=== PATIENT | female | born 1990 | race Caucasian/White ===

== ENCOUNTER 2018-06-05 20:19 | Inpatient (IN) ==
[2018-06-05] MEDS ORDERED: Sod Chloride 0.9% Inj 1,000 ML IV.SIG ONE (21:47)
--- NOTE | 2018-06-05 22:06 | ED ---
HPI General Chief Complaint: Behavioral Therapist Problem Stated Complaint: medical record coder complaint Time Seen by Provider: 06/05/18 21:35 Source: patient and family Mode of arrival: ambulatory Limitations: no limitations History of Present Illness HPI narrative: The patient is 20 years old and arrives with a problem with the gastric tube. The mother was unable to advance tube feeds today. Last oral intake was about 10 hours ago. The gastric button was placed about 8 years ago. Until now there has been no problem with it. The patient has put on 50 pounds since the placement of the gastric button. Related Data Home Medications Medication Instructions Recorded Confirmed clonazepam 1 mg FEEDING TUBE DAILY 06/05/18 06/05/18 glycopyrrolate 1 mg PO TID 06/05/18 06/05/18 levetiracetam 600 mg FEEDING TUBE 06/05/18 valproic acid 250 mg PO BID 06/05/18 06/05/18 Allergies Allergy/AdvReac Type Severity Reaction Status Date / Time morphine Allergy Severe Rash Unverified 06/05/18 20:57 Review of Systems ROS Unobtainable ROS Unobtainable: unobtainable due to mental condition PMFSH Medical History Medical History Cerebral palsy (Acute) Development disorder, mixed (Acute) Epilepsy (Acute) Feeding by G-tube (Acute) Gastrostomy tube in place (Acute) Scoliosis (Acute) Surgical History Surgical History H/O spinal fusion (Acute) Social History Social History Substance History: No History of Abuse Second Hand Smoke Exposure: No Smoking Status: Never smoker How Often Do You Have a Drink Containing Alcohol: Never Recent Travel in [facility] within the Last 8 Weeks: No Recent Out of Country Travel within the Last 8 Weeks: No Immunization History Tetanus Immunization: >5 Years Exam Narrative Exam Narrative: GENERAL: 20-year-old female well-nourished well-developed cerebral palsy habitus SKIN: Focused skin assessment warm/dry. HEAD: Atraumatic. Normocephalic. EYES: Pupils equal and round. No scleral icterus. No injection or drainage. ENT: No nasal bleeding or discharge. Mucous membranes pink and moist. NECK: Trachea midline. No JVD. CARDIOVASCULAR: Regular rate and rhythm. No murmur appreciated. RESPIRATORY: No accessory muscle use. Clear to auscultation. Breath sounds equal bilaterally. GASTROINTESTINAL:Gastric button in place upper left abdomen. Minimal granulation tissue about the site of insertion without cellulitis MUSCULOSKELETAL: Contractions at the wrists. NEUROLOGICAL: Patient has CP. Awake. Responsive to noxious stimulus PSYCHIATRIC: Appropriate mood and affect; insight and judgment normal. Course Initial Documented Vital Signs Temperature 98.5 F 06/05/18 20:58 Pulse Rate 105 H 06/05/18 20:58 Respiratory Rate 20 06/05/18 20:58 Blood Pressure 108/74 06/05/18 20:58 Pulse Oximetry 97 06/05/18 20:58 Last Documented Vital Signs Temperature 98.5 F 06/05/18 20:58 Pulse Rate 99 H 06/06/18 01:46 Respiratory Rate 20 06/06/18 01:46 Blood Pressure 129/75 06/06/18 01:46 Pulse Oximetry 95 06/06/18 01:46 Sign Out Sign Out Data: Patient Sign Out occurred on 06/05/18 at 23:21. Patient's care was discussed, and care was transferred from Celso Tejeda MD to Venkat Dick MD. Sign Out Comment: Please follow-up CT abdomen pelvis and blood work. Plan for admission afterwards. Last updated by Celso Tejeda MD at 06/05/18 23:19 Post-Handoff Eval: Case is signed out to me by Dr. Tejeda at 11 PM, please see his notes for further details. CAT scan is showing that the G-tube has pulled out of the stomach. Lab work was fairly unremarkable otherwise. At this point, plan would be to admit the patient for further treatment. The case has been discussed with Dr. Jim for admission. Medical Decision Making MDM Narrative Medical decision making narrative: Case discussed with the oncoming provider. Tract of gastric button unknown. CT abdomen pelvis ordered. Follow-up results with plan to admit and likely for replacement in the morning. Medical Screen Exam Complete: Yes Emergency Medical Condition: Yes Lab Data Result diagrams: 06/05/18 23:54 06/06/18 01:40 Lab Results 06/05/18 06/06/18 Range/Units 23:54 01:40 WBC 6.9 (4.0-11.0) th/mm3 RBC 4.23 (4.00-5.30) mil/mm3 Hgb 13.1 (11.6-15.3) gm/dL Hct 37.0 (35.0-46.0) % MCV 87.4 (80.0-100.0) fL MCH 31.0 (27.0-34.0) pg MCHC 35.5 (32.0-36.0) % RDW 13.8 (11.6-17.2) % Plt Count 180 (150-450) th/mm3 MPV 9.0 (7.0-11.0) fL Neut % (Auto) 56.3 (16.0-70.0) % Lymph % (Auto) 33.1 (9.0-44.0) % [place] % (Auto) 9.3 H (0.0-8.0) % Eos % (Auto) 0.9 (0.0-4.0) % Baso % (Auto) 0.4 (0.0-2.0) % Neut # (Auto) 3.9 (1.8-7.7) th/mm3 Lymph # (Auto) 2.3 (1.0-4.8) th/mm3 [place] # (Auto) 0.6 (0.0-0.9) th/mm3 Eos # (Auto) 0.1 (0.0-0.4) th/mm3 Baso # (Auto) 0.0 (0.0-0.2) th/mm3 WBC Differential . Differential Comment Auto diff final Sodium 137 (136-145) meq/L Potassium 3.6 (3.5-5.1) meq/L Chloride 105 (98-107) meq/L Carbon Dioxide 23.2 (21.0-32.0) meq/L Anion Gap 9 (5-15) meq/L BUN 10 (7-18) mg/dL Creatinine 0.33 L (0.50-1.00) mg/dL Estimated GFR Greater than 89 (>89) mL/min Random Glucose 83 (74-106) mg/dL Calcium 8.2 L (8.5-10.1) mg/dL Total Bilirubin 0.4 (0.2-1.0) mg/dL AST 22 (15-37) U/L ALT 30 (10-53) U/L Alkaline Phosphatase 70 (45-117) U/L Total Protein 7.7 (6.4-8.2) g/dL Albumin 2.8 L (3.4-5.0) g/dL Imaging Data Radiologist's impression: Abdomen/Pelvis CT 06/05/18 21:47 CONCLUSION: 1. The gastrostomy tube tip and balloon now appear located in the soft tissues anterior to the stomach. 2. Abnormal bowel gas pattern again most consistent with a severe ileus. A large amount of stool is again noted in the distal colon. 3. Severe scoliosis with postsurgical changes and stable posterior fixation rods. The left antoine remains broken. Discharge Plan Discharge Disposition Patient Disposition: 30 Still Patient Discharge Condition Condition: Stable Discharge Details Anticipated Discharge Date: 06/06/18 Diagnosis: Malfunction of gastrostomy tube Physicians Team ED Provider: Venkat Dick Rxs /Orders / Referrals /Forms Prescriptions: No Action valproic acid 250 mg Capsule 250 mg PO BID RF: 0 clonazepam 1 mg Tablet,Disintegrating 1 mg Feeding Tube DAILY RF: 0 levetiracetam 100 mg/mL Solution 600 mg Feeding Tube RF: 0 glycopyrrolate 1 mg/5 mL (0.2 mg/mL) Solution 1 mg PO TID RF: 0 Discharge Interventions Interventions: Vital Signs Last Done: 06/06/18 01:46 Status ED Status: Admitted Patient
--- NOTE | 2018-06-05 23:53 | CT ---
EXAM DATE: 06/05/2018 11:42 PM EST AGE/SEX: 28 years / Female INDICATIONS: Abdomen pain, evaluate location of peg tube, unable to advance tube feeds. CLINICAL DATA: This is the patient's initial encounter. Patient reports that signs and symptoms have been present for 1 day and indicates a pain score of 0/10. MEDICAL/SURGICAL HISTORY: . Cerebral palsy. . Spinal fusion. G-Tube. ORAL CONTRAST: No oral contrast ingested. RADIATION DOSE: 5.63 CTDI (mGy) COMPARISON: [facility] [place], CT ABDOMEN & PELVIS W CONTRAST, 09/22/2015. . TECHNIQUE: Multiple contiguous axial images were obtained through the abdomen and pelvis following b olus infusion of 30 ml Omnipaque 350 (iohexol) nonionic water-soluble contrast as a single exam dos e. No oral contrast ingested. Using automated exposure control and adjustment of the mA and/or kV ac cording to patient size, radiation dose was kept as low as reasonably achievable to obtain optimal di agnostic quality images. DICOM format image data is available electronically for review and comparis on. FINDINGS: Lower Lungs: The visualized lower lungs are clear. Liver: The liver has a homogeneous density without space-occupying lesion. There is no dilation of th e biliary tree. Spleen: Homogeneous density without enlargement. Pancreas: Unremarkable without mass or calcification. Kidneys: Normal in size and shape. No evidence of mass or hydronephrosis. Adrenal Glands: Unremarkable. Aorta: The aorta and proximal iliac vessels are grossly unremarkable without aneurysmal dilation. Bowel/Mesentery: An abnormal bowel gas pattern is again noted with gaseous distention throughout the colon and small bowel again noted without significant change. There is a large amount of stool again noted in the distal colon. A gastrostomy tube is again noted along the anterior abdominal wall muscu lature. The gastrostomy tube tip and balloon now appears located just anterior to the stomach. Abdominal Wall: Intact. Retroperitoneum: No evidence of adenopathy in the retrocrural, para-aortic, or deep pelvic regions. Bladder: Contours are smooth. Reproductive Organs: No abnormal masses or calcifications seen. Inguinal: The inguinal region is unremarkable without evidence of adenopathy. Bony Structures: A severe rotatory scoliosis of the thoracic and lumbar spine is again noted with po stoperative changes and Garcia type spinal fixation rods again noted. The left antoine appears broken but stable in the left lower thoracic region. CONCLUSION: 1. The gastrostomy tube tip and balloon now appear located in the soft tissues anterior to the stoma ch. 2. Abnormal bowel gas pattern again most consistent with a severe ileus. A large amount of stool is again noted in the distal colon. 3. Severe scoliosis with postsurgical changes and stable posterior fixation rods. The left antoine remai ns broken. Electronically signed by: Segun Warner MD 06/05/2018 11:52 PM EST
[2018-06-06 00:07] LABS: Baso % (Auto) 0.4 % (0.0-2.0); Eos # (Auto) 0.1 th/mm3 (0.0-0.4); Eos % (Auto) 0.9 % (0.0-4.0); Hemoglobin 13.1 gm/dL (11.6-15.3); Lymph # (Auto) 2.3 th/mm3 (1.0-4.8); Lymph % (Auto) 33.1 % (9.0-44.0); Mean Corpuscular HGB Conc 35.5 % (32.0-36.0); Mean Corpuscular Volume 87.4 fL (80.0-100.0); Mono # (Auto) 0.6 th/mm3 (0.0-0.9); Mono % (Auto) 9.3 % (0.0-8.0); Neut # (Auto) 3.9 th/mm3 (1.8-7.7); Neut % (Auto) 56.3 % (16.0-70.0); Platelet Count 180 th/mm3 (150-450); Red Blood Count 4.23 mil/mm3 (4.00-5.30); Red Cell Distribution Width 13.8 % (11.6-17.2); White Blood Count 6.9 th/mm3 (4.0-11.0)
[2018-06-06 02:28] LABS: Albumin 2.8 g/dL (3.4-5.0); Anion Gap 9 meq/L (5-15); Aspartate Aminotransferase 22 U/L (15-37); Blood Urea Nitrogen 10 mg/dL (7-18); Calcium 8.2 mg/dL (8.5-10.1); Carbon Dioxide 23.2 meq/L (21.0-32.0); Chloride 105 meq/L (98-107); Glomerular Filtration Rate Greater Than 89 mL/min (>89); Glucose,Random 83 mg/dL (74-106); Potassium 3.6 meq/L (3.5-5.1); Sodium 137 meq/L (136-145)
[2018-06-06 02:32] LABS: Alanine Aminotransferase 30 U/L (10-53); Alkaline Phosphatase 70 U/L (45-117); Total Protein 7.7 g/dL (6.4-8.2)
[2018-06-06] MEDS ORDERED: Bisacodyl 10 MG Supp RECTAL PRN (02:50)
[2018-06-06] MEDS ORDERED: Sodium Chloride 0.9% 2 ML Flush PRN IV.FLUSH (03:00)
--- NOTE | 2018-06-06 03:33 | P.HPIM ---
History of Present Illness Service: [facility] Hospitalists Primary Care Physician: Natacha Montgomery Chief Complaint: Unable to administer tube feedings History of Present Illness: Ms. Miranda is a 28 y/o female with a history of cerebral palsy, developmental disorder, epilepsy, and scoliosis who presented to the emergency room accompanied by her parents for evaluation of G-tube clogging. Abdomen/pelvis CT with, IV contrast showed gastrostomy tube with tip and balloon located in the soft tissues anterior to the stomach, severe ileus, and a large amount of stool in the distal colon. The patient is admitted to the hospitalist service for further management and evaluation. The patient is seen in the emergency room with her father at the bedside. The patient's father has to provide the medical history as the patient is unable to communicate with me. He tells me that the patient has been in her normal state of health but yesterday, his was unable to administer tube feeding to the patient. They subsequently brought her to the emergency room. She had no other problems that he was aware of. Review of Systems All other systems reviewed negative except as stated in HPI PMFSH - History History Provided By: Family Member - Medical History Medical History: Medical History (Last Reviewed 06/06/18 @ 05:23 by CLAY Yoo) Cerebral palsy Development disorder, mixed Epilepsy Feeding by G-tube Gastrostomy tube in place Scoliosis - Surgical History Surgical History: Surgical History (Last Reviewed 06/06/18 @ 05:23 by CLAY Yoo) H/O spinal fusion - Family History Family History: Family History (Last Updated 06/06/18 @ 05:25 by CLAY Yoo) Other Diabetes mellitus Hypertension Ovarian cancer - Social History I have reviewed the patient's Social History: Yes - Tobacco History Second Hand Smoke Exposure: No Tobacco Use In Past 30 Days: No Smoking Status: Never smoker - Alcohol History How Often Do You Have a Drink Containing Alcohol: Never - Substance Use History Substance History: No History of Abuse - Travel History Recent Travel in the [place] Within the Last 8 Weeks: No Recent Travel Out of the Country Within the Last 8 Weeks: No - Immunization History Tetanus Immunization: >5 Years Medications and Allergies Active Medications: Active Medications Bisacodyl (Dulcolax Supp) 10 mg RECTAL DAILY PRN PRN Reason: SEVERE CONSITIPATION Sodium Chloride (Ns Inj) 1,000 mls @ 100 mls/hr IV.CONT .Q10H ROLANDO Ondansetron HCl (Zofran Inj) 4 mg IV.PUSH Q6H PRN PRN Reason: NAUSEA OR VOMITING Sodium Chloride (Ns Flush) 2 ml IV.FLUSH BID ROLANDO Sodium Chloride (Ns Flush) 2 ml IV.FLUSH PRN PRN PRN Reason: FLUSH AFTER USING IV ACCESS Allergies Allergy/AdvReac Type Severity Reaction Status Date / Time morphine Allergy Severe Rash Unverified 06/05/18 20:57 Home Medications Medication Instructions Recorded Confirmed Type clonazepam 1 mg FEEDING TUBE DAILY 06/05/18 06/05/18 History glycopyrrolate 1 mg PO TID 06/05/18 06/05/18 History levetiracetam 600 mg FEEDING TUBE 06/05/18 History valproic acid 250 mg PO BID 06/05/18 06/05/18 History Exam Vital signs: Vital Signs 06/05/18 20:58 06/05/18 21:40 06/06/18 01:46 Temperature 98.5 F Pulse Rate 105 H 104 H 99 H Respiratory Rate 20 22 20 Blood Pressure 108/74 121/84 129/75 Pulse Oximetry 97 96 95 Intake & Output 06/05/18 06/05/18 06/06/18 06:59 18:59 06:59 Weight 45.359 kg Narrative: GENERAL: This is a well-nourished, well-developed patient, in no apparent distress. SKIN: No rashes. Cool and dry. EYES: No scleral icterus. No injection or drainage. NECK: Trachea midline. No JVD. CARDIOVASCULAR: Regular rate and rhythm without murmurs, gallops, or rubs. RESPIRATORY: Clear to auscultation. Breath sounds equal bilaterally. No wheezes , rales, or rhonchi. GASTROINTESTINAL: Abdomen soft, not apparently tender, nondistended. No guarding. G-tube noted with no erythema or exudate at insertion site. MUSCULOSKELETAL: Extremities without edema. No calf tenderness. NEUROLOGICAL: Awake and alert. Not verbally communicative. . Results - Labs CBC & Chem 7: 06/05/18 23:54 06/06/18 01:40 Labs: Short CBC 06/05/18 Range/Units 23:54 WBC 6.9 (4.0-11.0) th/mm3 Hgb 13.1 (11.6-15.3) gm/dL Hct 37.0 (35.0-46.0) % Plt Count 180 (150-450) th/mm3 BMP 06/06/18 01:40 Sodium 137 Potassium 3.6 Chloride 105 Carbon Dioxide 23.2 BUN 10 Creatinine 0.33 L Calcium 8.2 L Liver Function 06/06/18 Range/Units 01:40 Total Bilirubin 0.4 (0.2-1.0) mg/dL AST 22 (15-37) U/L ALT 30 (10-53) U/L Alkaline Phosphatase 70 (45-117) U/L Albumin 2.8 L (3.4-5.0) g/dL - Imaging Impressions Abdomen/Pelvis CT 06/05/18 21:47 CONCLUSION: 1. The gastrostomy tube tip and balloon now appear located in the soft tissues anterior to the stomach. 2. Abnormal bowel gas pattern again most consistent with a severe ileus. A large amount of stool is again noted in the distal colon. 3. Severe scoliosis with postsurgical changes and stable posterior fixation rods. The left antoine remains broken. Caprini VTE Risk Assessment Caprini VTE Risk Assessment: Moderate/High Risk (score >= 2) Caprini Risk Assessment Model: Point Value = 1 Point Value = 2 Point Value = 3 Point Value = 5 Age 41-60 Minor surgery BMI > 25 kg/m2 Swollen legs Varicose veins or History of unexplained or recurrent spontaneous Oral contraceptives or hormone replacement Sepsis (< 1 month) Serious lung disease, including pneumonia (< 1 month) Abnormal pulmonary function Acute myocardial infarction Congestive heart failure (< 1 month) History of inflammatory bowel disease Medical patient at bed rest Age 61-74 Arthroscopic surgery Major open surgery (> 45 min) Laparoscopic surgery (> 45 min) Malignancy Confined to bed (> 72 hours) Immobilizing plaster cast Central venous access Age >= 75 History of VTE Family history of VTE Factor V Leiden Prothrombin [id number] Lupus anticoagulant Anticardiolipin antibodies Elevated serum homocysteine Heparin-induced thrombocytopenia Other congenital or acquired thrombophilia Stroke (< 1 month) Elective arthroplasty Hip, pelvis, or leg fracture Acute spinal cord injury (< 1 month) Prophylaxis Regimen: Total Risk Factor Score Risk Level Prophylaxis Regimen 0-1 Low Early ambulation 2 Moderate Order ONE of the following: *Sequential Compression Device (SCD) *Heparin 5000 units SQ BID 3-4 Higher Order ONE of the following medications: *Heparin 5000 units SQ TID *Enoxaparin/Lovenox 40 mg SQ daily (WT < 150 kg, CrCl > 30 mL/min) *Enoxaparin/Lovenox 30 mg SQ daily (WT < 150 kg, CrCl > 10-29 mL/min) *Enoxaparin/Lovenox 30 mg SQ BID (WT < 150 kg, CrCl > 30 mL/min) AND/OR *Sequential Compression Device (SCD) 5 or more Highest Order ONE of the following medications: *Heparin 5000 units SQ TID (Preferred with Epidurals) *Enoxaparin/Lovenox 40 mg SQ daily (WT < 150 kg, CrCl > 30 mL/min) *Enoxaparin/Lovenox 30 mg SQ daily (WT < 150 kg, CrCl > 10-29 mL/min) *Enoxaparin/Lovenox 30 mg SQ BID (WT < 150 kg, CrCl > 30 mL/min) AND *Sequential Compression Device (SCD) Assessment and Plan - Plan Ms. Miranda is a 28 y/o female with a history of cerebral palsy, developmental disorder, epilepsy, and scoliosis who presented to the emergency room accompanied by her parents for evaluation of G-tube clogging. Abdomen/pelvis CT with, IV contrast showed gastrostomy tube with tip and balloon located in the soft tissues anterior to the stomach, severe ileus, and a large amount of stool in the distal colon. The patient is admitted to the hospitalist service for further management and evaluation. G tube dislodgement Severe ileus Constipation -Consult gastroenterology -appreciate assistance -IV normal saline at 100 cc/h -Zofran 4 mg IV push every 6 hours as needed for nausea vomiting DVT prophylaxis -SCDs Discussed Condition With: Dr. Jim and patient's father .
[2018-06-06] MEDS: Sod Chloride 0.9% Inj 1,000 ML IV.CONT SCH ×3 (04:30→23:12)
[2018-06-06] MEDS: Sodium Chloride 0.9% 2 ML Flush BID IV.FLUSH SCH ×2 (09:13→22:15)
--- NOTE | 2018-06-06 10:06 | P.PN ---
Subjective Interval history: Follow up for malfunctioning g tube and constipation: Patient seen and examined , she has had a seizure, approximately 35 seconds. Patient nonverbal. Vital signs stable, slightly tachycardic. Mother and father at bedside. Last dose of Keppra was yesterday morning. Unable to provide ROS. No fever. Physical Exam Vital signs: Vital Signs 06/05/18 20:58 06/05/18 21:40 06/06/18 01:46 Temperature 98.5 F Pulse Rate 105 H 104 H 99 H Respiratory Rate 20 22 20 Blood Pressure 108/74 121/84 129/75 Pulse Oximetry 97 96 95 06/06/18 05:38 06/06/18 08:29 06/06/18 09:52 Temperature Pulse Rate 104 H 126 H 117 H Respiratory Rate 20 20 27 H Blood Pressure 123/81 131/88 140/76 Pulse Oximetry 95 92 L 95 Intake & Output 06/05/18 06/06/18 06/06/18 18:59 06:59 18:59 Intake Total 1000 / 1000 Balance 1000 / 1000 Weight 45.359 kg Intake: IV 1000 / 1000 Other: # Urine Diapers 1 Date of Last Bowel Movement 06/05/18 # Incontinent Bowel Movements 1 Narrative: GENERAL: This is a well-nourished, well-developed patient, in no apparent distress. SKIN: No rashes. Cool and dry. EYES: No scleral icterus. No injection or drainage. Pupils 4 mm brisk. NECK: Trachea midline. No JVD. CARDIOVASCULAR: Regular rate and rhythm without murmurs, gallops, or rubs. RESPIRATORY: Clear to auscultation. Breath sounds equal bilaterally. No wheezes , rales, or rhonchi. GASTROINTESTINAL: Abdomen soft, not apparently tender, nondistended. No guarding. G-tube noted with no erythema or exudate at insertion site. MUSCULOSKELETAL: Bilat wrist contracted. Upper and lower extremity muscle atrophy. NEUROLOGICAL: Awake and alert. Not verbally communicative. . Results - Labs CBC & Chem 7: 06/05/18 23:54 06/06/18 01:40 Laboratory Results - last 24 hr 06/05/18 06/06/18 23:54 01:40 WBC 6.9 RBC 4.23 Hgb 13.1 Hct 37.0 MCV 87.4 MCH 31.0 MCHC 35.5 RDW 13.8 Plt Count 180 MPV 9.0 Neut % (Auto) 56.3 Lymph % (Auto) 33.1 [place] % (Auto) 9.3 H Eos % (Auto) 0.9 Baso % (Auto) 0.4 Neut # (Auto) 3.9 Lymph # (Auto) 2.3 [place] # (Auto) 0.6 Eos # (Auto) 0.1 Baso # (Auto) 0.0 WBC Differential . Differential Comment Auto diff final Sodium 137 Potassium 3.6 Chloride 105 Carbon Dioxide 23.2 Anion Gap 9 BUN 10 Creatinine 0.33 L Estimated GFR Greater than 89 Random Glucose 83 Calcium 8.2 L Total Bilirubin 0.4 AST 22 ALT 30 Alkaline Phosphatase 70 Total Protein 7.7 Albumin 2.8 L - Imaging Impressions Abdomen/Pelvis CT 06/05/18 21:47 CONCLUSION: 1. The gastrostomy tube tip and balloon now appear located in the soft tissues anterior to the stomach. 2. Abnormal bowel gas pattern again most consistent with a severe ileus. A large amount of stool is again noted in the distal colon. 3. Severe scoliosis with postsurgical changes and stable posterior fixation rods. The left antoine remains broken. Assessment and Plan - Assessment (1) Malfunction of gastrostomy tube Code(s): K94.23 - Gastrostomy malfunction Status: Acute (2) Epilepsy Code(s): G40.909 - Epilepsy, unspecified, not intractable, without status epilepticus Status: Chronic (3) Seizure Code(s): R56.9 - Unspecified convulsions Status: Acute (4) Constipation Code(s): K59.00 - Constipation, unspecified Status: Acute (5) Ileus Code(s): K56.7 - Ileus, unspecified Status: Acute - Plan Ms. Miranda is a 28 y/o female with a history of cerebral palsy, developmental disorder, epilepsy, and scoliosis who presented to the emergency room accompanied by her parents for evaluation of G-tube clogging. Abdomen/pelvis CT with, IV contrast showed gastrostomy tube with tip and balloon located in the soft tissues anterior to the stomach, severe ileus, and a large amount of stool in the distal colon. The patient is admitted to the hospitalist service for further management and evaluation. G tube dislodgement Severe ileus Constipation-pt. has lg bm today -Consult gastroenterology -appreciate assistance -IV normal saline at 100 cc/h -Zofran 4 mg IV push every 6 hours as needed for nausea vomiting -Keep NPO, going for peg placement Seizure, history of epilepsy, missed dose last night Hx of CP -will start Keppra 500mg IV BID, resume PO meds for am-Valproic acid -seizure precautions -add Ativan PRN DVT prophylaxis -SCDs Code Status: Full code Discussed Condition With: RN, pt's parents Discharge Planning: Poss dc tomorrow (2) Epilepsy Qualifiers: Epilepsy type: unspecified Intractability: not intractable Status epilepticus: without status epilepticus Qualified Code(s): G40.909 - Epilepsy, unspecified, not intractable, without status epilepticus (4) Constipation Qualifiers: Constipation type: unspecified constipation type Qualified Code(s): K59.00 - Constipation, unspecified
[2018-06-06] MEDS ORDERED: ceFAZolin 1 GM Premix Inj 1 GM/50 ML FROZ.PIGGY IV.SIG SCH (10:07)
--- NOTE | 2018-06-06 10:43 | P.CONGI ---
History of Present Illness Consult date: 06/06/18 Consult reason: Displaced G-tube Possible ileus Constipation Chief complaint: G-tube Dysfunction History of Present Illness: This patient is a 28-year-old female with a history of cerebral palsy, developmental disorder, epilepsy and scoliosis. Patient presented to the emergency room at [facility] brought in by her parents for an evaluation of her G-tube. Father reports that her G-tube stopped functioning last evening. He states patient is normally fed bolus feedings 4 times daily via gravity. States they were unable to administer last evening's feeding and tube appeared to be clogged. Upon arrival CT abdomen and pelvis revealed a gastrostomy tube with tip and balloon in the soft tissue anterior to the stomach-displaced, ileus and large amount of stool in the distal colon. Our service has been consulted to evaluate patient for these findings. Upon consultation, father reports this is the first time they have had difficulty with the feeding tube. He is unsure as to when this tube was placed. He denies that patient has had any vomiting or fever. Denies that he is noticed any indication of discomfort or abdominal pain. He reports patient had large brown bowel movement this a.m. 0400. States that patient is given high fiber tube feeding in order to combat constipation and normally has a soft brown bowel movement each day. He denies any bleeding or diarrhea. <Dori Watson - Last Filed: 06/06/18 10:26> Review of Systems All other systems reviewed negative except as stated in HPI <Dori Watson - Last Filed: 06/06/18 10:26> PMFSH - History History Provided By: Family Member - Medical History Medical History: Medical History (Last Reviewed 06/06/18 @ 05:23 by CLAY Yoo) Cerebral palsy Development disorder, mixed Epilepsy Feeding by G-tube Gastrostomy tube in place Scoliosis - Surgical History Surgical History: Surgical History (Last Reviewed 06/06/18 @ 05:23 by CLAY Yoo) H/O spinal fusion - Family History Family History: Family History (Last Updated 06/06/18 @ 05:25 by CLAY Yoo) Other Diabetes mellitus Hypertension Ovarian cancer - Tobacco History Second Hand Smoke Exposure: No Tobacco Use In Past 30 Days: No Smoking Status: Never smoker - Alcohol History How Often Do You Have a Drink Containing Alcohol: Never - Substance Use History Substance History: No History of Abuse - Travel History Recent Travel in the [place] Within the Last 8 Weeks: No Recent Travel Out of the Country Within the Last 8 Weeks: No - Immunization History Tetanus Immunization: >5 Years <Dori Watson - Last Filed: 06/06/18 10:26> - Medical History Medical History: Medical History (Last Reviewed 06/06/18 @ 05:23 by CLAY Yoo) Cerebral palsy Development disorder, mixed Epilepsy Feeding by G-tube Gastrostomy tube in place Scoliosis - Surgical History Surgical History: Surgical History (Last Reviewed 06/06/18 @ 05:23 by CLAY Yoo) H/O spinal fusion - Family History Family History: Family History (Last Updated 06/06/18 @ 05:25 by CLAY Yoo) Other Diabetes mellitus Hypertension Ovarian cancer <Orlando Nunn - Last Filed: 06/06/18 14:17> Medications and Allergies Active Medications: Active Medications Bisacodyl (Dulcolax Supp) 10 mg RECTAL DAILY PRN PRN Reason: SEVERE CONSITIPATION Sodium Chloride (Ns Inj) 1,000 mls @ 100 mls/hr IV.CONT .Q10H [facility] Last Admin: 06/06/18 04:30 Dose: 100 mls/hr Cefazolin Sodium 1,000 mg/ (Sodium Chloride) 100 mls @ 100 mls/hr IV.SIG ONCE ONE Stop: 06/06/18 11:06 Levetiracetam 500 mg/ Sodium (Chloride) 105 mls @ 400 mls/hr IV.SIG Q12H [facility] Stop: 06/07/18 08:00 Levetiracetam (Keppra Liq) 600 mg G-TUBE BID [facility] Ondansetron HCl (Zofran Inj) 4 mg IV.PUSH Q6H PRN PRN Reason: NAUSEA OR VOMITING Sodium Chloride (Ns Flush) 2 ml IV.FLUSH BID [facility] Last Admin: 06/06/18 09:13 Dose: Not Given Sodium Chloride (Ns Flush) 2 ml IV.FLUSH PRN PRN PRN Reason: FLUSH AFTER USING IV ACCESS Valproic Acid (Depakene) 250 mg PO BID [facility] <Dori Watson - Last Filed: 06/06/18 10:26> Active Medications: Active Medications Bisacodyl (Dulcolax Supp) 10 mg RECTAL DAILY PRN PRN Reason: SEVERE CONSITIPATION Sodium Chloride (Ns Inj) 1,000 mls @ 100 mls/hr IV.CONT .Q10H [facility] Last Admin: 06/06/18 04:30 Dose: 100 mls/hr Cefazolin Sodium/Dextrose (Ancef 1 Gm Premix Inj) 1 gm in 50 mls @ 100 mls/hr IV.SIG BASTING PULLER [facility] Stop: 06/07/18 10:06 Levetiracetam 500 mg/ Sodium (Chloride) 105 mls @ 400 mls/hr IV.SIG Q12H [facility] Stop: 06/07/18 08:00 Levetiracetam (Keppra Liq) 600 mg G-TUBE BID [facility] Ondansetron HCl (Zofran Inj) 4 mg IV.PUSH Q6H PRN PRN Reason: NAUSEA OR VOMITING Sodium Chloride (Ns Flush) 2 ml IV.FLUSH BID [facility] Last Admin: 06/06/18 09:13 Dose: Not Given Sodium Chloride (Ns Flush) 2 ml IV.FLUSH PRN PRN PRN Reason: FLUSH AFTER USING IV ACCESS Valproic Acid (Depakene) 250 mg PO BID [facility] <Orlando Nunn - Last Filed: 06/06/18 14:17> Allergies Allergy/AdvReac Type Severity Reaction Status Date / Time morphine Allergy Severe Rash Verified 06/06/18 10:15 Home Medications Medication Instructions Recorded Confirmed Type clonazepam 1 mg FEEDING TUBE DAILY 06/05/18 06/05/18 History glycopyrrolate 1 mg PO TID 06/05/18 06/05/18 History levetiracetam 600 mg FEEDING TUBE BID 06/05/18 06/06/18 History valproic acid 250 mg PO BID 06/05/18 06/05/18 History Exam Vital signs: Vital Signs 06/05/18 20:58 06/05/18 21:40 06/06/18 01:46 Temperature 98.5 F Pulse Rate 105 H 104 H 99 H Respiratory Rate 20 22 20 Blood Pressure 108/74 121/84 129/75 Pulse Oximetry 97 96 95 06/06/18 05:38 06/06/18 08:29 06/06/18 09:52 Temperature Pulse Rate 104 H 126 H 117 H Respiratory Rate 20 20 27 H Blood Pressure 123/81 131/88 140/76 Pulse Oximetry 95 92 L 95 Intake & Output 06/05/18 06/06/18 06/06/18 18:59 06:59 18:59 Intake Total 1000 / 1000 Balance 1000 / 1000 Weight 45.359 kg Intake: IV 1000 / 1000 Other: # Urine Diapers 1 Date of Last Bowel Movement 06/05/18 # Incontinent Bowel Movements 1 - Constitutional no acute distress - Routine HEENT Exam Head: Present: normocephalic - Routine Neck Exam Present: supple - Routine Respiratory Exam Absent: accessory muscle use - Routine Cardiovascular Exam Present: RRR, S1, S2 - Routine Abdominal Exam Present: soft, normoactive bowel sounds. Absent: tenderness, distended, guarding, firm Comments: PEG tube capped No drainage or signs of infection noted - Routine Extremities Exam Present: pulses intact. Absent: edema - Routine Skin Exam Present: dry, warm - Routine Neurological Exam Present: alert Nonverbal <Watson,Dori - Last Filed: 06/06/18 10:26> Vital signs: Vital Signs 06/05/18 20:58 06/05/18 21:40 06/06/18 01:46 Temperature 98.5 F Pulse Rate 105 H 104 H 99 H Respiratory Rate 20 22 20 Blood Pressure 108/74 121/84 129/75 Pulse Oximetry 97 96 95 06/06/18 05:38 06/06/18 08:29 06/06/18 09:52 Temperature Pulse Rate 104 H 126 H 117 H Respiratory Rate 20 20 27 H Blood Pressure 123/81 131/88 140/76 Pulse Oximetry 95 92 L 95 06/06/18 12:40 Temperature 97.1 F L Pulse Rate 113 H Respiratory Rate 20 Blood Pressure 123/64 Pulse Oximetry 96 Intake & Output 06/05/18 06/06/18 06/06/18 18:59 06:59 18:59 Intake Total 1105 / 1105 Balance 1105 / 1105 Weight 45.359 kg 45.35 kg Intake: IV 1105 / 1105 Keppra Inj 500 MG In NS Inj 100 105 / 105 ML @ 400 mls/hr IV.SIG ONCE ONE Rx#:[id number] Other: # Urine Diapers 1 Date of Last Bowel Movement 06/05/18 # Incontinent Bowel Movements 1 Weight On Admission 45.35 kg <Orlando Nunn - Last Filed: 06/06/18 14:17> Results - Labs CBC & Chem 7: 06/05/18 23:54 06/06/18 01:40 Labs: Laboratory Results - last 24 hr 06/05/18 06/06/18 23:54 01:40 WBC 6.9 RBC 4.23 Hgb 13.1 Hct 37.0 MCV 87.4 MCH 31.0 MCHC 35.5 RDW 13.8 Plt Count 180 MPV 9.0 Neut % (Auto) 56.3 Lymph % (Auto) 33.1 [place] % (Auto) 9.3 H Eos % (Auto) 0.9 Baso % (Auto) 0.4 Neut # (Auto) 3.9 Lymph # (Auto) 2.3 [place] # (Auto) 0.6 Eos # (Auto) 0.1 Baso # (Auto) 0.0 WBC Differential . Differential Comment Auto diff final Sodium 137 Potassium 3.6 Chloride 105 Carbon Dioxide 23.2 Anion Gap 9 BUN 10 Creatinine 0.33 L Estimated GFR Greater than 89 Random Glucose 83 Calcium 8.2 L Total Bilirubin 0.4 AST 22 ALT 30 Alkaline Phosphatase 70 Total Protein 7.7 Albumin 2.8 L - Imaging Impressions Abdomen/Pelvis CT 06/05/18 21:47 CONCLUSION: 1. The gastrostomy tube tip and balloon now appear located in the soft tissues anterior to the stomach. 2. Abnormal bowel gas pattern again most consistent with a severe ileus. A large amount of stool is again noted in the distal colon. 3. Severe scoliosis with postsurgical changes and stable posterior fixation rods. The left antoine remains broken. <Dori Watson - Last Filed: 06/06/18 10:26> - Labs CBC & Chem 7: 06/05/18 23:54 06/06/18 01:40 Labs: Laboratory Results - last 24 hr 06/05/18 06/06/18 23:54 01:40 WBC 6.9 RBC 4.23 Hgb 13.1 Hct 37.0 MCV 87.4 MCH 31.0 MCHC 35.5 RDW 13.8 Plt Count 180 MPV 9.0 Neut % (Auto) 56.3 Lymph % (Auto) 33.1 [place] % (Auto) 9.3 H Eos % (Auto) 0.9 Baso % (Auto) 0.4 Neut # (Auto) 3.9 Lymph # (Auto) 2.3 [place] # (Auto) 0.6 Eos # (Auto) 0.1 Baso # (Auto) 0.0 WBC Differential . Differential Comment Auto diff final Sodium 137 Potassium 3.6 Chloride 105 Carbon Dioxide 23.2 Anion Gap 9 BUN 10 Creatinine 0.33 L Estimated GFR Greater than 89 Random Glucose 83 Calcium 8.2 L Total Bilirubin 0.4 AST 22 ALT 30 Alkaline Phosphatase 70 Total Protein 7.7 Albumin 2.8 L - Imaging Impressions Abdomen/Pelvis CT 06/05/18 21:47 CONCLUSION: 1. The gastrostomy tube tip and balloon now appear located in the soft tissues anterior to the stomach. 2. Abnormal bowel gas pattern again most consistent with a severe ileus. A large amount of stool is again noted in the distal colon. 3. Severe scoliosis with postsurgical changes and stable posterior fixation rods. The left antoine remains broken. <Orlando Nunn - Last Filed: 06/06/18 14:17> Assessment and Plan (1) Malfunction of gastrostomy tube Status: Acute Code(s): K94.23 - Gastrostomy malfunction (2) Ileus Status: Acute Code(s): K56.7 - Ileus, unspecified (3) Constipation Status: Acute Code(s): K59.00 - Constipation, unspecified - Plan This patient is a 28-year-old female with a history of cerebral palsy, developmental disorder, epilepsy and scoliosis. Patient presented to the emergency room at [facility] brought in by her parents for an evaluation of her G-tube. Father reports that her G-tube stopped functioning last evening. He states patient is normally fed bolus feedings 4 times daily via gravity. States they were unable to administer last evening's feeding and tube appeared to be clogged. Upon arrival CT abdomen and pelvis revealed a gastrostomy tube with tip and balloon in the soft tissue anterior to the stomach-displaced, ileus and large amount of stool in the distal colon. Our service has been consulted to evaluate patient for these findings. Upon consultation, father reports this is the first time they have had difficulty with the feeding tube. He is unsure as to when this tube was placed. He denies that patient has had any vomiting or fever. Denies that he is noticed any indication of discomfort or abdominal pain. He reports patient had large brown bowel movement this a.m. 0400. States that patient is given high fiber tube feeding in order to combat constipation and normally has a soft brown bowel movement each day. He denies any bleeding or diarrhea. Malfunction PEG tube PEG tube noted, without any swelling, drainage or signs of infection. Family reports difficulty instilling tube feeding last evening, tube appeared to be clogged Attestation to water flushes pre-and post feeding [address] abdomen and pelvis done on arrival revealed the following findings : 1. The gastrostomy tube tip and balloon now appear located in the soft tissues anterior to the stomach. 2. Abnormal bowel gas pattern again most consistent with a severe ileus. A large amount of stool is again noted in the distal colon. 3. Severe scoliosis with postsurgical changes and stable posterior fixation rods. The left antoine remains broken. Ileus/ constipation CT abdomen and pelvis results noted above. Abdomen soft nondistended with positive bowel sounds on exam. Family reports patient had large soft brown stool this a.m. We will continue to follow. Plan -N.p.o. -Obtain consent for EGD with PEG placement -PEG placement plan for today -[facility] decision support manager -Supportive care -Further recommendations to follow This patient has been seen by myself and Dr. Nunn and this note is written on his behalf - Attending Attestation Dr. Nunn <Dori Watson - Last Filed: 06/06/18 10:26> (1) Malfunction of gastrostomy tube Status: Acute Code(s): K94.23 - Gastrostomy malfunction (2) Ileus Status: Acute Code(s): K56.7 - Ileus, unspecified (3) Constipation Status: Acute Code(s): K59.00 - Constipation, unspecified - Attending Attestation Patient was seen and examined, agree with, plan on upper endoscopy with possible PEG tube replacement if needed <Orlando Nunn - Last Filed: 06/06/18 14:17> <Orlando Nunn - Last Filed: 06/06/18 14:17> (3) Constipation Qualifiers: Constipation type: unspecified constipation type Qualified Code(s): K59.00 - Constipation, unspecified
[2018-06-06] MEDS ORDERED: Bacitracin Opth Oint 3.5 GM Tube ONE (14:03)
--- NOTE | 2018-06-06 14:16 | P.PCN ---
Date of procedure: 06/06/18 Procedure: THANK YOU FOR THE REFERRAL Indication; patient has cerebral palsy, she has PEG tube which seems to be dislodged from the abdomen on CT scan Procedure Performed; upper endoscopy with PEG tube removal, PEG tube placement After informing the patient's family about procedure and possible complications consent was signed. history and physical were updated. Patient was taken to the procedure room and placed in position. Time out was completed. Adequate sedation was performed by anesthesia provider. Upper Endoscopy, the scope was placed in the mouth advanced under video guide to the second portion of the duodenum, then the scope was withdrawal to the stomach and retro-flexion was performed, the PEG tube was not in the stomach consistent with dislodged tube , this was deflated and removed , I placed a guidewire in to the existing hole and I was able to track it into the stomach without any difficulty , a 16 [place] PEG balloon was placed without any difficulty , patient has gastric polyp which was biopsied . the scope was withdrawal to the esophagus then out of the mouth without any immediate complication , antibiotic was given and the area was sterilized with Betadine before putting the PEG tube Findings; Esophagus: Normal Stomach gastric polyp biopsy was done, 16 [place] PEG tube was placed without any difficulty Duodenum normal 1 g of Ancef was given Recommendations; 1- Supportive care 2- ok to transfer to recovery area then discharge per protocol 3-await biopsy result 4-n.p.o. for his 4 hours then may use PEG tube 5- EGD as needed 6-okay to discharge from GI perspective
[2018-06-06] MEDS: clonazePAM 0.5 MG Tablet G-TUBE SCH (22:15)
[2018-06-07 08:13] LABS: Baso % (Auto) 0.8 % (0.0-2.0); Eos # (Auto) 0.1 th/mm3 (0.0-0.4); Eos % (Auto) 1.6 % (0.0-4.0); Hemoglobin 11.6 gm/dL (11.6-15.3); Lymph # (Auto) 2.2 th/mm3 (1.0-4.8); Lymph % (Auto) 37.7 % (9.0-44.0); Mean Corpuscular HGB Conc 34.1 % (32.0-36.0); Mean Corpuscular Volume 91.1 fL (80.0-100.0); Mean Platelet Volume 8.2 fL (7.0-11.0); Mono # (Auto) 0.5 th/mm3 (0.0-0.9); Mono % (Auto) 8.3 % (0.0-8.0); Neut % (Auto) 51.6 % (16.0-70.0); Platelet Count 166 th/mm3 (150-450); Red Blood Count 3.73 mil/mm3 (4.00-5.30); Red Cell Distribution Width 13.1 % (11.6-17.2); White Blood Count 5.8 th/mm3 (4.0-11.0)
[2018-06-07 08:43] LABS: Anion Gap 7 meq/L (5-15); Blood Urea Nitrogen 7 mg/dL (7-18); Calcium 7.5 mg/dL (8.5-10.1); Carbon Dioxide 25.2 meq/L (21.0-32.0); Chloride 108 meq/L (98-107); Glomerular Filtration Rate Greater Than 89 mL/min (>89); Glucose,Random 136 mg/dL (74-106); Sodium 140 meq/L (136-145)
[2018-06-07] MEDS: Sod Chloride 0.9% Inj 1,000 ML IV.CONT SCH (08:46)
[2018-06-07] MEDS: clonazePAM 0.5 MG Tablet G-TUBE SCH (08:46)
[2018-06-07] MEDS: Sodium Chloride 0.9% 2 ML Flush BID IV.FLUSH SCH (08:47)
[2018-06-07] MEDS ORDERED: GLYCOPYRROLATE 1 MG PO SCH (09:00)
--- NOTE | 2018-06-07 09:23 | P.PN ---
Subjective Interval history: Follow up for Gtube dislodgement/malfunction. The patient is s/p replacement of Gtube yesterday 06/06 by GI. She has tolerated tube feeds since replacement. Mother at bedside ready to take the patient home. No other concerns reported. Patient is nonverbal. Physical Exam Vital signs: Vital Signs 06/06/18 09:52 06/06/18 12:40 06/06/18 14:50 Temperature 97.1 F L 97.1 F L Pulse Rate 117 H 113 H 103 H Respiratory Rate 27 H 20 18 Blood Pressure 140/76 123/64 144/88 H Pulse Oximetry 95 96 98 06/06/18 16:00 06/06/18 19:30 06/07/18 00:45 Temperature 98.8 F 98.7 F 99 F Pulse Rate 106 H 101 H 104 H Respiratory Rate 20 16 18 Blood Pressure 127/74 115/60 114/68 Pulse Oximetry 93 L 94 L 95 06/07/18 04:00 Temperature 98.8 F Pulse Rate 110 H Respiratory Rate 16 Blood Pressure 123/62 Pulse Oximetry 96 Intake & Output 06/06/18 06/07/18 06/07/18 18:59 06:59 18:59 Intake Total 2685 / 2685 2183 / 2183 762 / 762 Balance 2685 / 2685 2183 / 2183 762 / 762 Weight 45.35 kg 44 kg Intake: IV 2105 / 2105 1343 / 1343 762 / 762 NS Inj 1,000 ML @ 100 mls/hr IV 1000 / 1000 1238 / 1238 762 / 762 .CONT .Q10H [facility] Rx#:[id number] Keppra Inj 500 MG In NS Inj 100 105 / 105 105 / 105 ML @ 400 mls/hr IV.SIG Q12H [facility] Rx#:[id number] Oral 0 / 0 Tube Feeding 240 / 240 720 / 720 Tube Irrigant 40 / 40 Water Bolus Amount 120 / 120 Anesthesia Amount 300 / 300 Other: # Voids 3 Date of Last Bowel Movement 06/06/18 06/07/18 # Bowel Movements 1 Weight On Admission 45.35 kg Narrative: GENERAL: Young female patient in NAD. SKIN: Warm and dry. No rash. HEENT: Normocephalic. Atraumatic. Pupils equal and round. Mucous membranes pink and moist. CARDIOVASCULAR: Regular rate and rhythm. No murmur appreciated. RESPIRATORY: No accessory muscle use. Clear to auscultation. Breath sounds equal bilaterally. GASTROINTESTINAL: Abdomen soft, non-tender, nondistended. Gtube site at midabdomen with no surrounding erythema/edema. MUSCULOSKELETAL: No obvious deformities. Extremities without clubbing, cyanosis , or edema. NEUROLOGICAL: Awake and alert, eyes open. All extremities contracted with muscle atrophy. Nonverbal. Results - Labs CBC & Chem 7: 06/07/18 08:02 06/07/18 08:02 Laboratory Results - last 24 hr 06/07/18 06/07/18 08:02 08:02 WBC 5.8 RBC 3.73 L Hgb 11.6 Hct 34.0 L MCV 91.1 D MCH 31.0 MCHC 34.1 RDW 13.1 Plt Count 166 MPV 8.2 Neut % (Auto) 51.6 Lymph % (Auto) 37.7 [place] % (Auto) 8.3 H Eos % (Auto) 1.6 Baso % (Auto) 0.8 Neut # (Auto) 3.0 Lymph # (Auto) 2.2 [place] # (Auto) 0.5 Eos # (Auto) 0.1 Baso # (Auto) 0.0 WBC Differential . Differential Comment Auto diff final Sodium 140 Potassium 4.0 Chloride 108 H Carbon Dioxide 25.2 Anion Gap 7 BUN 7 Creatinine 0.35 L Estimated GFR Greater than 89 Random Glucose 136 H Calcium 7.5 L - Imaging Abdomen/Pelvis CT 06/05/18 21:47 CONCLUSION: 1. The gastrostomy tube tip and balloon now appear located in the soft tissues anterior to the stomach. 2. Abnormal bowel gas pattern again most consistent with a severe ileus. A large amount of stool is again noted in the distal colon. 3. Severe scoliosis with postsurgical changes and stable posterior fixation rods. The left antoine remains broken. - Procedures 06/06/18 - PEG replacement by GI Assessment and Plan - Assessment (1) Malfunction of gastrostomy tube Code(s): K94.23 - Gastrostomy malfunction Status: Acute (2) Epilepsy Code(s): G40.909 - Epilepsy, unspecified, not intractable, without status epilepticus Status: Chronic (3) Seizure Code(s): R56.9 - Unspecified convulsions Status: Acute (4) Constipation Code(s): K59.00 - Constipation, unspecified Status: Acute (5) Ileus Code(s): K56.7 - Ileus, unspecified Status: Acute - Plan Ms. Miranda is a 28 y/o female with a history of cerebral palsy, developmental disorder, epilepsy, and scoliosis who presented to the emergency room accompanied by her parents for evaluation of G-tube clogging. Abdomen/pelvis CT with, IV contrast showed gastrostomy tube with tip and balloon located in the soft tissues anterior to the stomach, severe ileus, and a large amount of stool in the distal colon. The patient is admitted to the hospitalist service for further management and evaluation. G tube dislodgement, Severe ileus, Constipation: acute. Patient had large spontaneous BM after admission. Given IVF and IV medications. Consulted gastroenterology, replaced PEG tube on 06/06, cleared for discharge. Patient tolerating tube feeds. Stable for discharge. Seizure, history of epilepsy, missed dose last night. Hx of Cerebral palsy. Given Keppra 500mg IV BID, resumed meds to be given via PEG after replacement. Discharge Planning: Discharge patient to home with mother Condition on discharge: Stable Tube feed Diet as tolerated Ad Lauren activity Rx written: no new meds Follow-up with primary care physician (2) Epilepsy Qualifiers: Epilepsy type: unspecified Intractability: not intractable Status epilepticus: without status epilepticus Qualified Code(s): G40.909 - Epilepsy, unspecified, not intractable, without status epilepticus (4) Constipation Qualifiers: Constipation type: unspecified constipation type Qualified Code(s): K59.00 - Constipation, unspecified
[2018-06-07 09:56] VITALS: BP 130/70; PULSE 107; RESP 20; TEMP 99.1; O2SAT 95
== END 2018-06-07 11:02 | disposition home or self-care (01) ==
LOC: NEDA 20:19 → NEPE 20:19 → NEDH 06-06 06:40 → N06 06-06 15:13
PROVIDERS: ADMIT Internal Medicine; ATTEND Internal Medicine